=== PATIENT | male | born 1985 | race Two or more races ===

== ENCOUNTER 2023-08-11 18:24 | Emergency (ER) | payer SELFPAY ==
[~2023-08-11] VITALS: Ht 172.7 cm; Wt 90.3 kg
[2023-08-11 18:51] VITALS: BP 125/86; PULSE 86; RESP 18; TEMP 98; O2SAT 98
[2023-08-11] MEDS ORDERED: IBUP-1456 PO (18:51)
[2023-08-11] MEDS ORDERED: AMOX875T4 PO (18:51)
[2023-08-11] MEDS: cefTRIAXone SOD 1,000 MG VL IM ONE (18:56)
[2023-08-11] MEDS: TETANUS-DIPTH-ACEL PERTUSSIS 0.5ML SYR Tdap IM ONE (18:56)
== END 2023-08-11 19:14 | disposition home or self-care (01) ==
LOC: ER 18:30
DX: S71.111A Laceration without foreign body, right thigh, initial encounter (principal); F17.210 Nicotine dependence, cigarettes, uncomplicated; Z79.1 Long term (current) use of non-steroidal anti-inflammatories (NSAID); W54.0XXA Bitten by dog, initial encounter; Y93.89 Activity, other specified; Y92.89 Other specified places as the place of occurrence of the external cause; Y99.8 Other external cause status
CPT/HCPCS: 12001; 90471; 90715; 96372; 99284; J0696

== ENCOUNTER 2023-08-30 13:05 | Emergency (ER) | payer MEDICAID, OTHER ==
[~2023-08-30] VITALS: Ht 172.7 cm; Wt 89.7 kg
[~2023-08-30 13:05] MED LIST: AMOX875T4 PO; IBUP-1456 PO
[2023-08-30 14:46] VITALS: PULSE 65; RESP 18; TEMP 98.1; O2SAT 98
[2023-08-30] MEDS: ONDANSETRON ODT 4 MG TAB PO ONE (15:01)
[2023-08-30] MEDS: KETOROLAC TROMETH 30 MG/ML 1ML VIAL IM ONE (15:01)
[2023-08-30 15:02] VITALS: BP 138/90; PULSE 78; RESP 20
[2023-08-30] MEDS: MORPHINE SULFATE 4 MG/ML SYR/VIAL IM ONE (15:02)
[2023-08-30] MEDS ORDERED: HYDR-4902 PO (16:05)
[2023-08-30] MEDS ORDERED: IBUP1TAB5 PO (16:05)
== END 2023-08-30 16:15 | disposition home or self-care (01) ==
LOC: ER 13:05
DX: S20.212A Contusion of left front wall of thorax, initial encounter (principal); F17.210 Nicotine dependence, cigarettes, uncomplicated; W18.2XXA Fall in (into) shower or empty bathtub, initial encounter; Y93.89 Activity, other specified; Y92.89 Other specified places as the place of occurrence of the external cause; Y99.8 Other external cause status
CPT/HCPCS: 71101; 96372; 99284; J1885; J2270; Q0162

== ENCOUNTER 2023-09-06 16:14 | Emergency (ER) | payer MEDICAID ==
[~2023-09-06] VITALS: Ht 172.7 cm; Wt 89.3 kg
[~2023-09-06 16:14] MED LIST changes: +HYDR-4902 PO; +IBUP1TAB5 PO
[2023-09-06] MEDS ORDERED: IBUP1TAB5 PO (18:37)
[2023-09-06] MEDS ORDERED: HYDR-4902 PO (18:37)
[2023-09-06 18:41] VITALS: BP 132/88; PULSE 90; RESP 20; TEMP 98; O2SAT 95
[2023-09-06] MEDS: KETOROLAC TROMETH 30 MG/ML 1ML VIAL IM ONE (18:49)
== END 2023-09-06 18:51 | disposition home or self-care (01) ==
LOC: ER 16:14
DX: S20.212D Contusion of left front wall of thorax, subsequent encounter (principal); F17.210 Nicotine dependence, cigarettes, uncomplicated; Z79.899 Other long term (current) drug therapy; W17.89XD Other fall from one level to another, subsequent encounter
CPT/HCPCS: 96372; 99283; J1885

== ENCOUNTER 2024-01-13 22:30 | Emergency (ER) | payer MEDICAID ==
[~2024-01-13] VITALS: Ht 172.7 cm; Wt 91.2 kg
[2024-01-13 22:41] VITALS: BP 129/93; PULSE 96; RESP 20; O2SAT 97
--- NOTE | 2024-01-14 00:27 | DVH ---
CLINICAL INDICATION: Right 2nd finger pain TECHNIQUE: 3 views of the right hand. XY R HAND 3 VIEW XRAY Comparison: None FINDINGS/IMPRESSION: There is no evidence of acute fracture or dislocation. Soft tissues are unremarkable.
--- NOTE | 2024-01-14 00:32 | ED.PDOC ---
History of Present Illness(SKN HPI Comments 38 year old male presents to ER with complaints of dog bite to finger x3 days. Patient reports that he was bit by his dog is fully up-to-date on shots on his right 2nd finger three days ago and has since been experiencing pain/swelling localized to right 2nd finger. Patient states that his pain got worse yesterday after hitting his right 2nd finger against a tire that he was changing. He rates his current pain a 7/10 to right 2nd finger without radiation. Denies use of medications for current symptoms and states he is up-to-date on his tetanus shot. Denies fever, body aches, chills, skin drainage, numbness/tingling or any further symptoms/complaints Chief Complaint: Animal Bite Time Seen by MD: 22:38 Primary Care Provider: UNKNOWN History of Present Illness: Nurses Notes, Medications, Allergies Allergies: Coded Allergies: NO KNOWN ALLERGIES (Unverified , 08/11/23) Home Meds Active Scripts Ibuprofen (Ibuprofen) 800 Mg Tab, 1 TAB PO TID PRN, #30 TAB 0 Refills Prov:NOBLE BAUER 01/14/24 Amoxicillin & Pot Clavulanate (Amoxicillin/Potassium Cla) 875 Mg Tab, 1 TAB PO BID for 7 Days, #14 TAB 0 Refills Prov:NOBLE BAUER 01/14/24 Hydrocodone-Acetaminophen (Hydrocodone Bitartrate/AC 5-325 mg) 1 Tab Tab, 1 TAB PO Q6HP PRN for 5 Days, #20 TAB Prov:NICK ESCOBAR 09/06/23 Ibuprofen Micronized (Ibuprofen) 600 Mg Tab, 600 MG PO Q6HPRN PRN for 5 Days, #20 TAB Prov:NICK ESCOBAR [facility] 09/06/23 Ibuprofen (Ibuprofen) 800 Mg Tab, 1 TAB PO TID PRN, #30 TAB 0 Refills Prov:NOBLE BAUER 08/11/23 Amoxicillin & Pot Clavulanate (Amoxicillin/Potassium Cla) 875 Mg Tab, 1 TAB PO BID for 7 Days, #14 TAB 0 Refills Prov:NOBLE BAUER 08/11/23 Information Source: Patient Mode of Arrival: Ambulatory Tetanus: UTD Past Medical History PAST MEDICAL HISTORY: Denies Surgical History: Appendectomy Family History Family History: Unknown Social History Smoker: Cigarettes, Less Than 1 Pack/Day Alcohol: Denies ETOH Use Drugs: Marijuana Lives In: Home Constitutional: denies: chills, diaphoresis, fatigue, fever, malaise, sweats, weakness, others EENTM: denies: blurred vision, double vision, ear bleeding, ear discharge, ear drainage, ear pain, ear ringing, eye pain, eye redness, hearing loss, mouth pain, mouth swelling, nasal discharge, nose bleeding, nose congestion, nose pain, photophobia, tearing, throat pain, throat swelling, voice changes, others Respiratory: denies: cough, hemoptysis, orthopnea, SOB at rest, shortness of breath, SOB with excertion, stridor, wheezing, others Cardiovascular: denies: chest pain, dizzy spells, diaphoresis, Dyspnea on exertion, edema, irregular heart beat, left arm pain, lightheadedness, palpitat ions, PND, syncope, others Gastrointestinal: denies: abdomen distended, abdominal pain, blood streaked bow els, constipated, diarrhea, dysphagia, difficulty swallowing, hematemesis, melena, nausea, poor appetite, poor fluid intake, rectal bleeding, rectal pain, vomiting, others Genitourinary: denies: burning, dysuria, flank pain, frequency, hematuria, incontinence, penile discharge, penile sore, pain, testicle pain, testicle swelling, urgency, others Neurological: denies: dizziness, fainting, headache, left sided numbness, left sided weakness, numbness, paresthesia, pre-existing deficit, right sided numbness, right sided weakness, seizure, speech problems, tingling, tremors, weakness, others Musculoskeletal: reports: others (As stated in HPI) Integumetry: reports: others (As stated in HPI) Allergic/Immunocompromised: denies: Difficulty Healing, Frequent Infections, Hives, Itching, others Hematologic/Lymphatic: denies: anemia, blood clots, easy bleeding, easy bruising, swollen glands, others Endocrine: denies: excessive hunger, excessive sweating, excessive thirst, excessive urination, flushing, intolerance to cold, intolerance to heat, unexplained weight gain, unexplained weight loss, others Psychiatric: denies: anxiety, bipolar disorder, depression, hopeless, panic disorder, schizophrenia, sleepless, suicidal, others Physical Exam General Appearance: No Apparent Distress, Obese HEENT: PERRL/EOMI Neck: Full Range of Motion, Non-Tender, Normal Respiratory: Chest Non-Tender, Lungs Clear, No Accessory Muscle Use, No Respiratory Distress, Normal Breath Sounds Cardiovascular: No Murmur, No Gallop, Regular Rate/Rhythm Breast Exam: Deferred Gastrointestinal: NOT DONE Genitalia: Deferred Pelvic: Deferred Rectal: Deferred Extremities: Normal capillary refill Musculoskeletal : Extremity Location: Finger 2 (TTP/mild swelling and minimal abrasions noted to right 2nd finger. No fluctuance/drainage/red streaking/nailbed injury noted. Slight limitation on flexion of right 2nd finger noted. Pulses intact) Neurologic: Alert, sales associate II-XII nml as Tested, No Motor Deficits, Normal Affect, Normal Mood, No Sensory Deficits Cerebellar Function: Normal Reflexes: Normal Skin: Dry, Warm Peripheral Pulses: 2+ Radial (R), 2+ Radial (L), 2+ Brachial (R), 2+ Brachial (L) Lymphatic: No Adenopathy Was a procedure done? Was a procedure done?: No Sedation Sedation?: No Differential Diagnosis (INTG) Differential Diagnosis: Neurovascular Injury Differential Diagnosis: Laceration, Open Fracture, Retained Foreign Body X-Ray, Labs, Meds, VS Vital Signs Date Time Temp Pulse Resp B/P (MAP) Pulse Ox O2 Delivery O2 Flow Rate FiO2 01/13/24 22:41 98.3 96 20 129/93 (105) 97 PATIENT: EMELYN WAGNER CCT: [id number] UNIT: [id number] : 1985 LOC: ER ROOM / BED: / AGE / SEX: 38 / M ADM STATUS: REG ER SERVICE [id number] ORDERING PHYSICIAN: NOBLE BAUER PROCEDURE(s): RHAN - R HAND 3 VIEW XRAY REASON: Right 2nd finger pain ORDER NUMBER(s): [id number], ACCESSION NUMBER(s): [id number] CLINICAL INDICATION: Right 2nd finger pain TECHNIQUE: 3 views of the right hand. XY R HAND 3 VIEW XRAY Comparison: None FINDINGS/IMPRESSION: There is no evidence of acute fracture or dislocation. Soft tissues are unremarkable. ATED BY: MARLEY ANDERSON MD DICTATED DATE/TIME: 01/14/2424 SIGNED BY: MARLEY ANDERSON MD SIGNED DATE/TIME: 01/14/2424 CC: Right hand x-ray reviewed Rocephin 1 g IM ordered Toradol 60 mg IM ordered Patient neurovascularly intact Smoking/cannabis cessation discussed and advised Wound care/cleaning discussed and advised Advised on rest/no strenuous activity, elevation and alternate ice on/off as needed for pain Advised to follow up with PCP in 1-2 days Patient verbalized understanding and agreeable with current plan of care Advised to return to ER immediately if symptoms worsen Time of 1ST Reevaluation: 00:14 Reevaluation 1ST: N/A Patient Education/Counseling: Diagnosis, Treatment, Prognosis, Need For Follow Up Family Education/Counseling: No Family Present Departure 1 Departure Time of Disposition: 00:30 Impression: Primary Impression: Dog bite of finger Qualified Codes: S61.259A - Open bite of unspecified finger without damage to nail, initial encounter; W54.0XXA - Bitten by dog, initial encounter Disposition: HOME / SELF CARE / HOMELESS Condition: Stable e-Prescriptions Ibuprofen (Ibuprofen) 800 Mg Tab 1 TAB PO TID PRN, #30 TAB 0 Refills Prov: NOBLE BAUER 01/14/24 Amoxicillin & Pot Clavulanate (Amoxicillin/Potassium Cla) 875 Mg Tab 1 TAB PO BID for 7 Days, #14 TAB 0 Refills Prov: NOBLE BAUER 01/14/24 Discharged With: Self Critical Care Note Critical Care Time?: No Stability Stability form required: No Heart Score Heart Score: Heart Score Response (Comments) Value History N/A 0 EKG N/A 0 Age N/A 0 Risk Factors N/A 0 Troponin N/A 0 Total 0 NOBLE BAUER Jan 14, 2024 00:32
[2024-01-14] MEDS: KETOROLAC TROMETH 60MG/2ML VIAL IM ONE (00:49)
[2024-01-14] MEDS: cefTRIAXone SOD 1,000 MG VL IM ONE (00:50)
== END 2024-01-14 00:52 | disposition home or self-care (01) ==
LOC: ER 22:30
DX: S61.259A Open bite of unspecified finger without damage to nail, initial encounter (principal); F17.210 Nicotine dependence, cigarettes, uncomplicated; F12.10 Cannabis abuse, uncomplicated; Z90.49 Acquired absence of other specified parts of digestive tract; W54.0XXA Bitten by dog, initial encounter; Y93.89 Activity, other specified; Y92.89 Other specified places as the place of occurrence of the external cause; Y99.8 Other external cause status
CPT/HCPCS: 73130; 96372; 99284; J0696; J1885

== ENCOUNTER 2024-07-17 15:48 | Emergency (ER) | payer SELFPAY ==
[~2024-07-17] VITALS: Ht 172.7 cm; Wt 84.6 kg
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
[2024-07-17 17:58] VITALS: BP 132/64; TEMP 98.6; O2SAT 98
[2024-07-17 18:04] VITALS: PULSE 74; RESP 18
== END 2024-07-17 18:15 | disposition home or self-care (01) ==
LOC: ER 15:48
DX: S02.2XXA Fracture of nasal bones, initial encounter for closed fracture (principal); F12.90 Cannabis use, unspecified, uncomplicated; Z79.899 Other long term (current) drug therapy; Z90.49 Acquired absence of other specified parts of digestive tract; X58.XXXA Exposure to other specified factors, initial encounter; Y93.01 Activity, walking, marching and hiking; Y92.89 Other specified places as the place of occurrence of the external cause; Y99.8 Other external cause status
CPT/HCPCS: 70486